=== PATIENT | male | born 1975 | race Caucasian/White ===

== ENCOUNTER 2017-04-03 13:59 | Emergency (ER) | payer OTHER ==
[~2017-04-03] VITALS: Ht 182.9 cm; Wt 90.5 kg
[2017-04-03] MEDS ORDERED: SODIUM CHLORIDE 0.9% 1,000 ML IV ONE (14:10)
[2017-04-03 14:30] LABS: BASOPHILS # (AUTO) 0.04 x10^3/uL (0-0.1); BASOPHILS % (AUTO) 0 % (0-1); EOSINOPHILS % (AUTO) 1 % (1-7); LYMPHOCYTES # (AUTO) 1.96 x10^3/uL (1-3.4); LYMPHOCYTES % (AUTO) 23 % (22-44); MD NO; MEAN CORPUSCULAR HEMOGLOBIN 30.4 pg (27.5-34.5); MEAN CORPUSCULAR VOLUME 89.3 fL (81-97); MEAN PLATELET VOLUME 7.6 fL (7.4-10.4); MONOCYTES # (AUTO) 0.77 x10^3/uL (0.2-0.8); MONOCYTES % (AUTO) 9 % (2-9); NEUTROPHILS # (AUTO) 5.77 x10^3/uL (1.8-6.8); NEUTROPHILS % (AUTO) 67 % (42-75); PLATELET COUNT 327 x10^3/uL (130-400); RED BLOOD COUNT 4.95 x10^6/uL (4.38-5.82); RED CELL DISTRIBUTION WIDTH 12.5 % (9.4-14.8)
[2017-04-03] MEDS ORDERED: ONDANSETRON 2MG/ML, 2ML IVPush ONE ×2 (14:30→18:00)
[2017-04-03] MEDS ORDERED: SODIUM CHLORIDE 0.9% 1,000ML IVBOLUS ONE (14:30)
[2017-04-03 14:41] LABS: ALBUMIN 4.1 g/dL (3.4-5.0); ANION GAP 8 mmol/L (5-15); CALCIUM 9.5 mg/dL (8.5-10.1); CHLORIDE 106 mmol/L (98-107); CREATININE 1.91 mg/dL (0.7-1.3)
[2017-04-03 14:49] LABS: MICROSCOPIC AUTO
[2017-04-03 14:52] LABS: CULTURE INDICATED? NO
[2017-04-03] MEDS ORDERED: SODIUM CHLORIDE FLUSH 10ML SYR IVF ONE (15:00)
[2017-04-03] MEDS ORDERED: ONDANSETRON 2MG/ML, 2ML ONE ×2 (15:18→17:41)
[2017-04-03] MEDS ORDERED: MORPHINE SULFATE 4 MG/ML, 1ML ONE ×2 (15:18→15:37)
[2017-04-03] MEDS: MORPHINE SULFATE 4 MG/ML, 1ML IVPush PRN ×2 (15:22→15:40)
[2017-04-03] MEDS ORDERED: FAMOTIDINE 20 MG/2 ML ONE (17:49)
[2017-04-03] MEDS ORDERED: KETOROLAC 30 MG/1 ML ONE (17:49)
[2017-04-03] MEDS ORDERED: FAMOTIDINE 20 MG/2 ML IVPush ONE (18:00)
[2017-04-03] MEDS ORDERED: KETOROLAC 30 MG/1 ML IVPush ONE (18:00)
[2017-04-03 18:17] VITALS: BP 129/74
== END 2017-04-03 18:18 | disposition home or self-care (01) ==
LOC: ED 18:06
DX: N30.01 Acute cystitis with hematuria (principal)
CPT/HCPCS: 36415; 74176; 80048; 81001; 82040; 85025; 96361; 96374; 96375; 96376; 99285; J1885; J2405; J7030; S0028

== ENCOUNTER 2017-05-31 23:05 | Emergency (ER) | payer OTHER ==
[~2017-05-31] VITALS: Ht 182.9 cm; Wt 89.8 kg
[2017-05-31 23:06] VITALS: BP 129/81
[2017-05-31] MEDS ORDERED: HYDROcodone/APAP 5/325 TABLET ONE (23:50)
[2017-06-01] MEDS ORDERED: HYDROcodone/APAP 5/325 TABLET PO ONE
== END 2017-06-01 00:47 | disposition home or self-care (01) ==
LOC: ED 06-01 00:46
DX: S43.422A Sprain of left rotator cuff capsule, initial encounter (principal); W00.0XXA Fall on same level due to ice and snow, initial encounter; Y93.89 Activity, other specified; Y92.488 Other paved roadways as the place of occurrence of the external cause; Y99.8 Other external cause status
CPT/HCPCS: 29105

== ENCOUNTER 2019-01-19 16:09 | Emergency (ER) | payer OTHER ==
[~2019-01-19] VITALS: Ht 182.9 cm; Wt 83.4 kg
--- NOTE | 2019-01-19 17:40 | NUR ---
WORSENING L INGUINAL HERNIA, +PAIN, NAUSEA NO DIFFICULTY URINATING. PSIN DECRIBED SHARP/PRESSURE AT 8/10 WHILE AT REST TO PLACE PIV FOR PRESUMED IV MEDICATION FOR REDUCTION
[2019-01-19 17:56] LABS: BASOPHILS # (AUTO) 0.08 x10^3/uL (0-0.1); BASOPHILS % (AUTO) 1 % (0-1); EOSINOPHILS # (AUTO) 0.06 x10^3/uL (0-0.4); EOSINOPHILS % (AUTO) 1 % (1-7); LYMPHOCYTES # (AUTO) 2.63 x10^3/uL (1-3.4); LYMPHOCYTES % (AUTO) 28 % (22-44); MD NO; MEAN CORPUSCULAR HEMOGLOBIN 31.2 pg (27.5-34.5); MEAN CORPUSCULAR HGB CONC 33.8 g/dL (33.2-36.2); MEAN CORPUSCULAR VOLUME 92.1 fL (81-97); MONOCYTES % (AUTO) 7 % (2-9); NEUTROPHILS % (AUTO) 64 % (42-75); PLATELET COUNT 318 x10^3/uL (130-400); RED BLOOD COUNT 5.43 x10^6/uL (4.38-5.82); RED CELL DISTRIBUTION WIDTH 12.8 % (9.4-14.8)
[2019-01-19 18:03] LABS: ALBUMIN 4.3 g/dL (3.4-5.0); ANION GAP 5 mmol/L (5-15); CALCIUM 9.2 mg/dL (8.5-10.1); CHLORIDE 103 mmol/L (98-107); CREATININE 1.18 mg/dL (0.7-1.3)
[2019-01-19] MEDS ORDERED: HYDROcodone/APAP 5/325 TABLET PO ONE (18:30)
[2019-01-19] MEDS ORDERED: ONDANSETRON ODT 4 MG PO ONE (18:30)
[2019-01-19] MEDS ORDERED: ONDANSETRON ODT 4 MG ONE (18:31)
[2019-01-19] MEDS ORDERED: HYDROcodone/APAP 5/325 TABLET ONE (18:31)
[2019-01-19 19:11] VITALS: BP 127/80
--- NOTE | 2019-01-19 19:13 | NUR ---
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
== END 2019-01-19 19:13 | disposition home or self-care (01) ==
LOC: ED 19:07
DX: K40.90 Unilateral inguinal hernia, without obstruction or gangrene, not specified as recurrent (principal); R19.7 Diarrhea, unspecified
CPT/HCPCS: 36415; 80048; 82040; 85025; 99283; Q0162